=== PATIENT | male | born 1995 | race Caucasian/White ===

== ENCOUNTER 2020-06-27 14:10 | Emergency (ER) | payer OTHER, SELFPAY ==
[2020-06-27 14:23] VITALS: BP 120/62; PULSE 92; RESP 18; TEMP 37.3; O2SAT 99
--- NOTE | 2020-06-27 14:39 | ED.EYEPROB ---
HPI - Eye Problem General Chief complaint: Eye Problems Stated complaint: eye problems Time Seen by Provider: 06/27/20 14:31 Source: patient and RN notes reviewed Mode of arrival: ambulatory Limitations: no limitations History of Present Illness HPI Narrative: Patient presents today complaining of a rash around both eyes that he noted this morning when he woke up. He also reports that since yesterday his eyes have felt strained. States that when he stares too long they sting and water. Reports he does have seasonal allergies, but does not take any medication for them. Reports that he does a lot of heavy lifting with his work with a [employer], but no more than normal. Denies any recent constipation, straining. States he has sneezed a few times recently. He has not tried any [id number] treatment prior to arrival. MD chief complaint: eye redness Related Data Home Medications Medication Instructions Recorded Confirmed No Home Medications 06/27/20 06/27/20 Review of Systems Review of Systems: Narrative: CONSTITUTIONAL: Denies body aches, fever, chills, or sweats. EYES: Denies visual changes, redness, or discharge. Rash around both eyes. +redness to the left eye+ watering and stinging to both eyes ENT: Denies rhinorrhea, congestion, sore throat, or otalgia. CARDIOVASCULAR: Denies chest pain, palpitations, or edema. RESPIRATORY: Denies cough or dyspnea. GASTROINTESTINAL: Denies abdominal pain, nausea, vomiting, or diarrhea. GENITOURINARY: Denies dysuria or hematuria. SKIN: Denies itching, or wounds. MUSCULOSKELETAL: Denies back pain, joint pain, or myalgia. NEUROLOGIC: Denies headache, numbness, tingling, or weakness. PSYCH: Denies depression or anxiety. PMFSH Comments At time of signature, I have reviewed and agree with nursing past medical, surgical, social and family history unless otherwise noted. Please see nursing chart for further information. There is no relevant family history pertinent to the presenting complaint Exam Narrative: Exam Narrative: GENERAL: Well-appearing, well-nourished, and in no acute distress. HEAD: Normocephalic, atraumatic. EYES: EOMI. PERRL. Mildly injected conjunctiva bilaterally. No active drainage. Small, mild subconjunctival hemorrhage to the medial portion of the left eye. Scattered petechiae bilaterally over the upper and lower eyelids. ENT: Mucous membranes pink and moist. NECK: Normal AROM. CHEST: No respiratory distress. EXTREMITIES: Normal range of motion. No edema. SKIN: Warm, dry, no rash. Capillary refill normal. Normal skin turgor. NEURO: No focal deficits. Alert and oriented x3. Gait steady. PSYCH: Normal affect. No signs of depression or anxiety. Course Vital Signs Vital signs: Vital Signs Temperature 99.2 F 06/27/20 14:23 Pulse Rate 92 06/27/20 14:23 Respiratory Rate 18 06/27/20 14:23 Blood Pressure 120/62 06/27/20 14:23 Pulse Oximetry 99 06/27/20 14:23 Temperature 99.2 F 06/27/20 14:23 Pulse Rate 92 06/27/20 14:23 Respiratory Rate 18 06/27/20 14:23 Blood Pressure 120/62 06/27/20 14:23 Pulse Oximetry 99 06/27/20 14:23 Reviewed MDM - Eye Problem Differential Diagnosis Differential diagnosis: Likely corneal abrasion, conjunctivitis, subconjunctival hemorrhage and other (Petechiae, dermatitis) Critical Care Time Critical Care Time Critical Care Time: No Discharge Plan Discharge Clinical Impression: Petechiae, Acute allergic conjunctivitis of both eyes Subconjunctival hemorrhage Qualifiers: Laterality: bilateral Qualified Code(s): H11.33 - Conjunctival hemorrhage, bilateral Patient Disposition: Home, Self-Care Condition: Stable Instructions: Subconjunctival Hemorrhage (ED), Conjunctivitis (ED) Additional Instructions: The cause of your petechiae is unclear, however, it is likely related to your allergic conjunctivitis symptoms. The petechiae and the left sided subconjunctival hemorrhage will resol
== END 2020-06-27 14:48 | disposition home or self-care (01) ==
PROVIDERS: Emergency Provider Nurse Practitioner
DX: R23.3 Spontaneous ecchymoses (principal); H10.13 Acute atopic conjunctivitis, bilateral; H11.33 Conjunctival hemorrhage, bilateral
CPT/HCPCS: 99212; G0463

== ENCOUNTER 2021-01-31 20:20 | Emergency (ER) | payer OTHER, SELFPAY ==
[2021-01-31 20:22] VITALS: BP 130/57; PULSE 86; RESP 18; TEMP 36.8; O2SAT 99
--- NOTE | 2021-01-31 20:36 | ED.GENADULT ---
HPI - General Adult General Chief complaint: Upper Respiratory Infection Stated complaint: I need a covid test for work Time Seen by Provider: 01/31/21 20:30 Source: patient History of Present Illness HPI narrative: Patient is a 25 y/o male complaining of headache, sorethroat, subjective fever and slight cough for several days. He did not check his temperature, but felt feverish. He states that that his boss wants him to have a COVID test. Related Data Home Medications Medication Instructions Recorded Confirmed No Home Medications 06/27/20 06/27/20 Allergies Allergy/AdvReac Type Severity Reaction Status Date / Time No Known Allergies Allergy Verified 01/31/21 20:39 Review of Systems Constitutional: Constitutional: Denies chills, Reports fever(s), Reports headache(s) and Denies weakness Eyes: Eyes: Denies blurry vision ENT: Reports headache(s), Denies neck pain and Reports sore throat Cardiovascular: Cardiovascular: Denies chest pain and Denies dyspnea Respiratory: Respiratory: Denies cough and Denies dyspnea Gastrointestinal: Gastrointestinal: Denies abdominal pain, Denies diarrhea, Denies nausea and Denies vomiting Genitourinary: Genitourinary: Denies hematuria and Denies dysuria Musculoskeletal: Musculoskeletal: Denies back pain and Denies neck pain Neurologic: Reports headache(s) and Denies weakness Exam Const: General: no acute distress and well developed Orientation/consciousness: oriented to person, oriented to place, oriented to time and patient oriented x3 HENMT: Head: normocephalic Ears: external ears normal General nose exam: Normal external nose present Eyes: General: appearance normal, both eyes and all related structures Conjunctivae: conjunctivae normal Neck: Neck: normal visual inspection and full ROM Chest: Chest palpation & inspection: normal inspection of the chest and no tenderness Resp: Effort & Inspection: normal respiratory effort Auscultation: clear to auscultation bilaterally Cardio: Rate: regular rate Rhythm: regular rhythm GI: GI Palp: No abdominal tenderness and Yes Soft to palpation Skin: General skin exam: normal color and turgor normal Neuro: General: oriented to person, oriented to place, oriented to time and patient oriented x3 Cognition (Neuro): normal cognition Extrem: General: normal to inspection, full ROM and no pedal edema Psych: Appearance: grossly normal Mental Status: mental status grossly normal Affect: normal affect Course Vital Signs Vital signs: Vital Signs Temperature 36.8 C 01/31/21 20:22 Pulse Rate 86 01/31/21 20:22 Respiratory Rate 18 01/31/21 20:22 Blood Pressure 130/57 L 01/31/21 20:22 Pulse Oximetry 99 01/31/21 20:22 Temperature 36.8 C 01/31/21 20:22 Pulse Rate 74 01/31/21 22:35 Respiratory Rate 16 01/31/21 22:35 Blood Pressure 142/78 H 01/31/21 22:35 Pulse Oximetry 99 01/31/21 22:35 Medical Decision Making Vital Signs Vital Signs: Vital Signs Temperature 36.8 C 01/31/21 20:22 Pulse Rate 86 01/31/21 20:22 Respiratory Rate 18 01/31/21 20:22 Blood Pressure 130/57 L 01/31/21 20:22 Pulse Oximetry 99 01/31/21 20:22 Temperature 36.8 C 01/31/21 20:22 Pulse Rate 74 01/31/21 22:35 Respiratory Rate 16 01/31/21 22:35 Blood Pressure 142/78 H 01/31/21 22:35 Pulse Oximetry 99 01/31/21 22:35 Lab Data Labs: Lab Results 01/31/21 Range/Units 21:54 SARS-CoV-2 RNA (RT-PCR) Pending Strep Screen Presumptive Negative *(Reference Range: Negative)* Discharge Plan Discharge Clinical Impression: Person under investigation for COVID-19 Upper respiratory infection Qualifiers: URI type: unspecified URI Qualified Code(s): J06.9 - Acute upper respiratory infection, unspecified Patient Disposition: Home, Self-Care Condition: Stable Instructions: Upper Respiratory Infection (ED), COVID-
[2021-01-31 22:35] VITALS: BP 142/78; PULSE 74; RESP 16; O2SAT 99
[2021-02-01 18:32] LABS: SARS-CoV-2 RNA PCR Negative
== END 2021-01-31 22:38 | disposition home or self-care (01) ==
PROVIDERS: Emergency Provider Emergency Medicine
DX: J06.9 Acute upper respiratory infection, unspecified (principal); Z20.822 Contact with and (suspected) exposure to COVID-19
CPT/HCPCS: 87880; 99283; C9803; U0003; U0005